=== PATIENT | male | born 1995 | race Caucasian/White ===

== ENCOUNTER 2017-12-04 19:46 | Emergency (ER) | payer OTHER ==
[~2017-12-04] VITALS: Ht 185.4 cm; Wt 76.0 kg
[~2017-12-04 19:46] MED LIST: BUTA1CAP57; FLUO20CA19; TOPI25TA32 PO; [UNRECOGNIZED DRUG - CODE]
[2017-12-04] MEDS ORDERED: LORazepam 1MG TABLET ONE (20:27)
[2017-12-04] MEDS ORDERED: LORazepam 1MG TABLET PO ONE (20:30)
[2017-12-04 21:43] VITALS: BP 114/58
== END 2017-12-04 21:49 | disposition home or self-care (01) ==
LOC: ED 21:41
DX: F41.0 Panic disorder [episodic paroxysmal anxiety] (principal)
CPT/HCPCS: 99284